=== PATIENT | female | born 1995 | race African-American/Black ===

== ENCOUNTER 2021-10-18 17:58 | Emergency (ER) | payer OTHER ==
[2021-10-18 19:12] LABS: Bilirubin Negative (Negative); Blood, Urine Negative (Negative); Clarity Clear (Clear); Glucose, Urine (Dipstick) Normal (Negative); Ketone, Urine Negative (Negative); Leukocyte Negative Leu/uL (Negative); Nitrite Negative (Negative); Protein, Urine (Dipstick) Negative (Neg-Trace); Specific Gravity, Urine 1.026 (1.002-1.036); Urobilinogen Normal mg/dL (Less than 2)
[2021-10-18 19:13] LABS: Pregnancy Test - Urine (BHCG) Negative (Negative); Pregu Control Background? CLEAR/WHITE (CLR/WHITE); Pregu Control Bar Appear? YES (CONTROL BAR); Specific Gravity 1.026 (1.002-1.036)
[2021-10-18] MEDS ORDERED: cefTRIAXone\\ROCEPHIN 500 MG VIAL ONE (20:47)
[2021-10-18] MEDS ORDERED: Azithromycin 250 MG TAB ONE (20:47)
[2021-10-19 22:02] LABS: Chlamydia by PCR Not Detected (NotDetected); GC by PCR Not Detected (NotDetected)
== END 2021-10-18 21:42 | disposition home or self-care (01) ==
LOC: ERS 17:58
DX: Z11.3 Encounter for screening for infections with a predominantly sexual mode of transmission (principal); N76.0 Acute vaginitis; B37.3 Candidiasis of vulva and vagina; Z87.891 Personal history of nicotine dependence
CPT/HCPCS: 81003; 81025; 87077; 87086; 87480; 87491; 87510; 87591; 87660; 96372; 99283; J0696